=== PATIENT | female | born 1945 | race Caucasian/White ===

== ENCOUNTER → 2020-05-12 | Outpatient (CLI) | payer OTHER ==
[~2020-05-12] MED LIST: HYDROCHLOROTHIA25 M2; KLOR-CON 1010 MEQ; LEVOTHYROXIN0.088 MG; LOVASTAT40; PEPTO-BISMOL1 TAB; PRILOSEC20 MG; PROBIOTIC1 EAC1; WHITE WILLOW BARK; ZETIA10 MG
== END ==
LOC: M.RAD 12:35
PROVIDERS: ATTEND Family Medicine
DX: Z12.31 Encounter for screening mammogram for malignant neoplasm of breast (principal)